=== PATIENT | male | born 1945 | race Caucasian/White ===

== ENCOUNTER 2023-03-05 14:11 | Inpatient (IN) | payer MEDICARE, BC ==
[2023-03-05 14:55] LABS: BLOOD UREA NITROGEN,BUN 18 mg/dL (7-18); CALCIUM 8.5 mg/dL (8.6-10.2); CARBON DIOXIDE,CO2 29 mmol/L (21-32); CHLORIDE,CL 98 mmol/L (100-110); CREATININE 0.9 mg/dL (0.70-1.30); ESTIMATED GFR 87 mL/min (>60); GLUCOSE RANDOM 119 mg/dL (80-116); SODIUM,NA 133 mmol/L (135-145)
[2023-03-05 15:04] LABS: LACTIC ACID 0.7 mmol/L (0.4-2.0)
[2023-03-05] MEDS ORDERED: VANCOmycin 1.5 GM/300 ML 1.5 GM in Premix Bag 1 BAG IV SCH (15:30)
[2023-03-05] MEDS ORDERED: VANCOmycin 1.5 GM/300 ML 300 ML IV SCH (16:00)
[2023-03-05] MEDS ORDERED: Enoxaparin 40 MG/0.4 ML Syringe SUBCUT SCH (16:00)
[2023-03-05] MEDS ORDERED: Piperacillin/Tazobactam 3.375 GM in Sodium Chloride 0.9% 50 ML IV SCH (18:00)
[2023-03-05 20:38] VITALS: BP 146/81; PULSE 70
[2023-03-05] MEDS ORDERED: Tamsulosin 0.4 MG Cap.ER PO SCH (21:00)
[2023-03-05] MEDS ORDERED: Docusate Sodium 100 MG Cap PO SCH (21:00)
[2023-03-05] MEDS ORDERED: Simvastatin 10 MG Tab PO SCH (21:00)
[2023-03-06] MEDS ORDERED: Pantoprazole 40 MG Tab.CR PO SCH (06:00)
[2023-03-06] MEDS ORDERED: Levothyroxine 125 MCG Tab PO SCH (06:00)
[2023-03-06] MEDS ORDERED: Lisinopril 5 MG Tab PO SCH (09:00)
[2023-03-06] MEDS ORDERED: Finasteride 5 MG Tab PO SCH (09:00)
[2023-03-06] MEDS ORDERED: Aspirin 81 MG Tab.EC PO SCH (09:00)
== END 2023-03-05 20:33 | DRG 603 ==
LOC: FB.MS 14:11
PROVIDERS: ADMIT Student in an Organized Health Care Education/Training Program; ATTEND Student in an Organized Health Care Education/Training Program
DX: L03.112 Cellulitis of left axilla (principal); N13.8 Other obstructive and reflux uropathy; M35.3 Polymyalgia rheumatica; I10 Essential (primary) hypertension; K21.9 Gastro-esophageal reflux disease without esophagitis; E03.9 Hypothyroidism, unspecified; D50.9 Iron deficiency anemia, unspecified; E78.2 Mixed hyperlipidemia; M15.9 Polyosteoarthritis, unspecified; N40.1 Benign prostatic hyperplasia with lower urinary tract symptoms; Z88.8 Allergy status to other drugs, medicaments and biological substances; Z79.899 Other long term (current) drug therapy; Z90.49 Acquired absence of other specified parts of digestive tract; Z98.49 Cataract extraction status, unspecified eye; Z90.89 Acquired absence of other organs; Z98.890 Other specified postprocedural states
CPT/HCPCS: 36415; 80048; 83605; 99223; A9270-GY; J1650; J2543; J3370; J3490